=== PATIENT | female | born 2000 | race Caucasian/White ===

== ENCOUNTER 2019-07-15 11:17 | Outpatient (RCR) | payer MEDICAID, SELFPAY ==
[2019-07-15 12:04] LABS: Hematocrit 34.9 % (37.0-47.0); Hemoglobin 11.7 g/dL (12.0-15.0); Mean Corpuscular HGB Conc 33.5 g/dl (32-36); Mean Corpuscular Hemoglobin 30.9 pg (26-34); Mean Corpuscular Volume 92.1 fl (80-100); Mean Platelet Volume 12.1 fl (7.4-10.4); Platelet Count Result 122 k/mm3 (150-375); Red Blood Count 3.79 M/mm3 (4.2-5.4); Red Cell Distribution Width 13.2 % (11.5-14.5); White Blood Count 8.6 K/mm3 (4.5-10.0)
[2019-07-15 12:53] LABS: Hepatitis B Surface Antigen Negative (Negative)
[2019-07-15 12:59] LABS: HIV 1/2 Ab P24 Ag Result Negative (Negative)
[2019-07-15 13:48] LABS: Rubella IgG Antibody > 120.0 IU/ML
[2019-07-16 11:42] LABS: Rapid Plasma Reagin Non-Reactive (NonReactive)
[2019-07-18 01:37] LABS: CMV IgM Antibody <30.00 AU/mL (<30.00)
[2019-07-18 15:23] LABS: Varicella IgM Antibody <=0.90 (<=0.90)
== END 2019-10-13 23:59 | disposition home or self-care (01) ==
LOC: ANHLAB 11:17
PROVIDERS: PCP Nurse Practitioner Adult Health; Visit Provider Obstetrics & Gynecology
DX: N92.5 Other specified irregular menstruation (principal); Z11.4 Encounter for screening for human immunodeficiency virus [HIV]
CPT/HCPCS: 36415; 84702; 85027; 86592; 86644; 86645; 86703; 86747; 86762; 86787; 86900; 86901; 87086; 87088; 87340; G0432

== ENCOUNTER 2019-11-13 16:08 | Outpatient (CLI) | payer OTHER, SELFPAY ==
[2019-11-13 16:36] LABS: Basophils Percent Auto 0.2 % (0.2-1.2); Eosinophils Percent Auto 0.4 % (0-4.4); Hematocrit 36.9 % (37.0-47.0); Hemoglobin 12.6 g/dL (12.0-15.0); Immature Granulocyte Absolute 0.05 K/mm3 (0.00-0.031); Immature Granulocyte Percent A 0.5 % (0-0.5); Lymphocytes Absolute Auto 1.65 K/mm3 (0.9-3.2); Lymphocytes Percent Auto 15.4 % (18.3-44.2); Mean Corpuscular HGB Conc 34.1 g/dl (32-36); Mean Corpuscular Hemoglobin 32.5 pg (26-34); Mean Corpuscular Volume 95.1 fl (80-100); Mean Platelet Volume 12.1 fl (7.4-10.4); Monocytes Absolute Auto 0.6 K/mm3 (0.1-0.6); Monocytes Percent Auto 5.1 % (2.6-8.5); Neutrophils Absolute Auto 8.4 K/mm3 (1.3-6.7); Neutrophils Percent Auto 78.4 % (45.5-73.1); Platelet Count Result 146 k/mm3 (150-375); Red Blood Count 3.88 M/mm3 (4.2-5.4); Red Cell Distribution Width 12.7 % (11.5-14.5); White Blood Count 10.7 K/mm3 (4.5-10.0)
[2019-11-13 16:46] LABS: Creatinine Urine 126.8 mg/dL; Total Protein Urine Random 15 mg/dL
[2019-11-13 16:50] LABS: Alanine Aminotransferase 16 U/L (4-35); Albumin Level 3.9 g/dL (3.7-5.6); Alkaline Phosphatase 61 U/L (45-116); Anion Gap 7 mmol/L (8-16); Aspartate Amino Transferase 23 U/L (14-36); Bilirubin,Total 0.3 mg/dL (0.2-1.3); Blood Urea Nitrogen 7 mg/dL (8-21); Calcium 8.9 mg/dL (8.9-10.7); Carbon Dioxide 24 mmol/L (22-30); Chloride 102 mmol/L (98-107); Estimated Glomerular Filt Rate > 60; Glucose 98 mg/dL (65-105); Lactate Dehydrogenase 332 U/L (313-618); Potassium 3.9 mmol/L (3.4-5.0); Sodium 133 mmol/L (134-143); Uric Acid 2.7 mg/dL (3.0-5.9)
== END 2019-11-13 16:09 | disposition home or self-care (01) ==
LOC: ANHLAB 16:12
PROVIDERS: Visit Provider Obstetrics & Gynecology
DX: D69.6 Thrombocytopenia, unspecified (principal)
CPT/HCPCS: 36415; 80053; 82570; 83615; 84156; 84550; 85025

== ENCOUNTER 2021-06-18 13:55 | Emergency (ER) | payer OTHER, SELFPAY ==
[2021-06-18 14:03] VITALS: BP 93/60; PULSE 103; RESP 18; TEMP 37.1; O2SAT 97
[2021-06-18 14:10] VITALS: BP 93/60; PULSE 103; RESP 18; TEMP 37.1; O2SAT 97
--- NOTE | 2021-06-18 14:17 | ED.EAR ---
HPI - Ear Problem General Chief complaint: Ear Stated complaint: Lt Ear Pain,Rt Ear Irritation Time Seen by Provider: 06/18/21 14:10 Source: patient Mode of arrival: ambulatory Limitations: no limitations History of Present Illness HPI Narrative: Pratibha Coleman is a 20 yo female with no PMH who comes to express care with complaints of bilateral ear pain. Left ear is weeping and canal is swollen difficult to visualize end of canal, started 1 week ago; there is very tender to touch Related Data Allergies Allergy/AdvReac Type Severity Reaction Status Date / Time Penicillins Allergy Mild RASH Verified 06/18/21 14:10 tetracycline Allergy Mild RASH Verified 06/18/21 14:10 Review of Systems Review of Systems: CONSTITUTIONAL: Denies fever, chills, sweats. EYES: Denies visual changes, redness, discharge. ENT: Denies rhinorrhea, congestion, sore throat, otalgia. Bilateral ear pain the right is itching some and the left is swollen and very tender with discharge CARDIOVASCULAR: Denies chest pain, palpitations, edema. RESPIRATORY: Denies dyspnea, wheezing, cough GASTROINTESTINAL: Denies abdominal pain, nausea, vomiting, diarrhea. GENITOURINARY: Denies dysuria, hematuria, abnormal discharge SKIN: Denies rash or itching. NEUROLOGIC: Denies numbness, or focal weakness. PSYCHIATRIC: Denies anxiety or depression. PMFSH Social History Social History (Updated 06/18/21 @ 14:21 by Myrna Johnson CNP) Smoking status: Never smoker Alcohol intake: never Comments At time of signature, I agree with nursing past medical, surgical, social and family history. There is no relevant family history pertinent to the presenting complaint. Exam Narrative: GENERAL: This is a well-nourished, well-developed patient, in mild distress. HEAD: normocephalic, atraumatic. EYES:Sclera clear/white. Vision is grossly intact. EARS: External ears normal, auditory canals erythema and with drainage on left. Canal very tender to touch unable to visualize TM,. Hearing grossly intact. NOSE: External nose normal without nasal discharge, nares without redness, no rhinorrhea. THROAT: Mucous membranes moist, NECK: Neck supple, non-tender CARDIOVASCULAR: Regular rate and rhythm without murmurs, gallops, or rubs. RESPIRATORY: Clear to auscultation. Breath sounds equal bilaterally. No wheezes, rales, or rhonchi. GASTROINTESTINAL: Not done SKIN: warm, intact with no suspicious lesions or rash, good texture and turgor. NEURO: awake, alert, and oriented to person, place and time. There were no obvious focal neurologic abnormalities. Steady gait EXTREMITIES: Normal range of motion. BACK: Nontender without deformity Course Course Emergency Course: Patient here with bilateral ear pain left with drainage x1 week Started on amoxicillin and eardrops; caution to not place anything in the ear see antibiotics corrected the problem on the left Level of Care: Express Care Visit Vital Signs Vital signs: Vital Signs Temperature 98.7 F 06/18/21 14:03 Pulse Rate 103 H 06/18/21 14:03 Respiratory Rate 18 06/18/21 14:03 Blood Pressure 93/60 L 06/18/21 14:03 Pulse Oximetry 97 06/18/21 14:03 Temperature 98.7 F 06/18/21 14:10 Pulse Rate 103 H 06/18/21 14:10 Respiratory Rate 18 06/18/21 14:10 Blood Pressure 93/60 L 06/18/21 14:10 Pulse Oximetry 97 06/18/21 14:10 Medical Decision Making Differential Diagnosis Differential Diagnosis: Otitis media versus otitis externa versus foreign object in place versus eustachian tube dysfunction Vital Signs Vital Signs: Vital Signs Temperature 98.7 F 06/18/21 14:03 Pulse Rate 103 H 06/18/21 14:03 Respiratory Rate 18 06/18/21 14:03 Blood Pressure 93/60 L 06/18/21 14:03 Pulse Oximetry 97 06/18/21 14:03 Temperature 98.7 F 06/18/21 14:10 Pulse Rate 103 H 06/18/21 14:10 Respiratory Rate 18 06/18/21 14:10 Blood Pressure 93/60 L 06/18/21 14:10 Pulse Oximetry 97 06/18/21 14:10 C
== END 2021-06-18 14:26 | disposition home or self-care (01) ==
PROVIDERS: Emergency Provider Nurse Practitioner
DX: H60.313 Diffuse otitis externa, bilateral (principal)
CPT/HCPCS: 99213; G0463

== ENCOUNTER 2021-11-08 15:05 | Outpatient (CLI) | payer OTHER, SELFPAY ==
[2021-11-08 16:06] LABS: Basophils Percent Auto 0.2 % (0.2-1.2); Eosinophils Percent Auto 0.3 % (0-4.4); Hematocrit 36.2 % (37.0-47.0); Hemoglobin 12.2 g/dL (12.0-15.0); Immature Granulocyte Absolute 0.03 K/mm3 (0.00-0.031); Immature Granulocyte Percent A 0.3 % (0-0.5); Lymphocytes Absolute Auto 1.67 K/mm3 (0.9-3.2); Lymphocytes Percent Auto 17.9 % (18.3-44.2); Mean Corpuscular HGB Conc 33.7 g/dl (32-36); Mean Corpuscular Hemoglobin 31.4 pg (26-34); Mean Corpuscular Volume 93.3 fl (80-100); Mean Platelet Volume 12.5 fl (7.4-10.4); Monocytes Absolute Auto 0.4 K/mm3 (0.1-0.6); Monocytes Percent Auto 4.5 % (2.6-8.5); Neutrophils Absolute Auto 7.2 K/mm3 (1.3-6.7); Neutrophils Percent Auto 76.8 % (45.5-73.1); Platelet Count Result 132 k/mm3 (150-375); Red Blood Count 3.88 M/mm3 (4.2-5.4); Red Cell Distribution Width 13.2 % (11.5-14.5); White Blood Count 9.3 K/mm3 (4.5-10.0)
[2021-11-08 16:56] LABS: Hepatitis B Surface Antigen Negative (Negative)
[2021-11-08 17:05] LABS: HIV 1/2 Ab P24 Ag Result Negative (Negative)
[2021-11-08 17:30] LABS: Rubella IgG Antibody > 120.0 IU/ML
[2021-11-09 15:00] LABS: Rapid Plasma Reagin Non-Reactive (NonReactive)
== END 2021-11-08 15:06 | disposition home or self-care (01) ==
LOC: ANHLAB 15:07
PROVIDERS: Visit Provider Obstetrics & Gynecology
DX: N94.89 Other specified conditions associated with female genital organs and menstrual cycle (principal)
CPT/HCPCS: 36415; 84702; 85025; 86592; 86644; 86703; 86747; 86762; 86787; 86850; 86900; 86901; 87086; 87088; 87340; G0432

== ENCOUNTER 2021-12-06 14:45 | Outpatient (CLI) | payer OTHER, SELFPAY ==
[2021-12-06 15:06] LABS: Mean Platelet Volume 12.1 fl (7.4-10.4); Platelet Count Result 131 k/mm3 (150-375)
== END 2021-12-06 14:46 | disposition home or self-care (01) ==
LOC: ANHLAB 14:47
PROVIDERS: Visit Provider Obstetrics & Gynecology
DX: D69.1 Qualitative platelet defects (principal)
CPT/HCPCS: 36415; 85049

== ENCOUNTER 2022-03-01 15:30 | Outpatient (CLI) | payer OTHER, SELFPAY ==
[2022-03-01 16:09] LABS: Basophils Percent Auto 0.2 % (0.2-1.2); Eosinophils Percent Auto 0.3 % (0-4.4); Hematocrit 35.8 % (37.0-47.0); Hemoglobin 12.1 g/dL (12.0-15.0); Immature Granulocyte Absolute 0.07 K/mm3 (0.00-0.031); Immature Granulocyte Percent A 0.6 % (0-0.5); Lymphocytes Absolute Auto 2.08 K/mm3 (0.9-3.2); Lymphocytes Percent Auto 17.5 % (18.3-44.2); Mean Corpuscular HGB Conc 33.8 g/dl (32-36); Mean Corpuscular Hemoglobin 32.2 pg (26-34); Mean Corpuscular Volume 95.2 fl (80-100); Mean Platelet Volume 12.3 fl (7.4-10.4); Monocytes Absolute Auto 0.6 K/mm3 (0.1-0.6); Neutrophils Absolute Auto 9.1 K/mm3 (1.3-6.7); Neutrophils Percent Auto 76.4 % (45.5-73.1); Platelet Count Result 138 k/mm3 (150-375); Red Blood Count 3.76 M/mm3 (4.2-5.4); Red Cell Distribution Width 12.6 % (11.5-14.5); White Blood Count 11.9 K/mm3 (4.5-10.0)
== END 2022-03-01 15:31 | disposition home or self-care (01) ==
LOC: ANHLAB 15:32
PROVIDERS: Visit Provider Student in an Organized Health Care Education/Training Program
DX: D69.1 Qualitative platelet defects (principal)
CPT/HCPCS: 36415; 85025

== ENCOUNTER 2022-04-04 12:23 | Outpatient (CLI) | payer OTHER, SELFPAY ==
[2022-04-04 14:18] LABS: Glucose 1 Hour PP 50gm Dose 87 mg/dL
== END 2022-04-04 12:24 | disposition home or self-care (01) ==
LOC: ANHLAB 12:24
PROVIDERS: Visit Provider Student in an Organized Health Care Education/Training Program
DX: Z34.90 Encounter for supervision of normal pregnancy, unspecified, unspecified trimester (principal); Z3A.00 Weeks of gestation of pregnancy not specified
CPT/HCPCS: 36415; 82947

== ENCOUNTER 2022-05-11 17:17 | Inpatient (IN) | payer OTHER, SELFPAY ==
[2022-05-11 17:37] VITALS: RESP 20; TEMP 36.4; BMI 24.5
--- NOTE | 2022-05-11 17:40 | LDADM ---
This patient, Pratibha Corrigan, was admitted to Labor/Delivery/Recovery 106 on 05/11/22 at 17:17. Plans for labor, pain management and were discussed with patient. Patient/family oriented to hospital policies and general routines including ID bracelet, bed and alarms, visiting hours, pain management, procedures, bathroom and other care routines, personal items, smoking policy, room service/diet and guest tray routines, security routines, and visiting hours. Patient/Family are encouraged to report perceived risks to care and to ask questions if they do not understand what they are told or what they should do. See OBIX for further documentation.
--- NOTE | 2022-05-11 17:42 | WPDANESEPP ---
Anes - Eval Pre Procedure Procedure: labor epidural Date/Time: 05/11/22 17:42 Surgeon: ariadna Preop Diagnosis: pain during labor Pre Op Diagnosis: IOL Patient Data Age: 21 Gender: F Height: Weight: Last Vital Signs O2 Del Method Room Air 05/11/22 17:37 Allergies Allergy/AdvReac Type Severity Reaction Status Date / Time Penicillins Allergy Mild RASH Verified 05/10/22 14:50 tetracycline Allergy Mild RASH Verified 05/10/22 14:50 Home Medications Medication Instructions Recorded Confirmed Type prenat.vits,marty,msc-upqx-dajrw 1 tablet PO DAILY #90 tabs 11/04/21 05/11/22 Rx Patient hx anesthesia problems: none Family hx anesthesia problems: none Results Review: All pre-operative results and documents have been reviewed as part of the pre-operative evaluation. COUNT INCLUDES THE [facility] Past Medical History Medical History Allergies Anxiety disorder Asthma Family history of ambiguous genitalia 1st Family History Family History (Updated 05/11/22 @ 17:42 by Mala Rob RN) Grandparent Breast cancer Other No pertinent family history in first degree relatives Social History Social History Smoking status: Never smoker Alcohol intake: never Substance use: current Substance use type: marijuana Last use: a few days ago Living arrangements: with family Occupation/Education: unemployed Gender identity (if verbalized by the patient): Female Sexual Orientation (if Verbalized by the Patient): Straight or Heterosexual Spiritual care concerns: No Exam Day of Procedure 05/11/22 17:42
[2022-05-11 18:07] LABS: Basophils Percent Auto 0.2 % (0.2-1.2); Eosinophils Percent Auto 0.3 % (0-4.4); Hematocrit 37.9 % (37.0-47.0); Hemoglobin 12.9 g/dL (12.0-15.0); Immature Granulocyte Absolute 0.04 K/mm3 (0.00-0.031); Immature Granulocyte Percent A 0.4 % (0-0.5); Immature Platelet Fraction Pct 18.1 % (0.9-11.2); Lymphocytes Absolute Auto 1.87 K/mm3 (0.9-3.2); Lymphocytes Percent Auto 19.7 % (18.3-44.2); Mean Corpuscular Hemoglobin 32.7 pg (26-34); Mean Corpuscular Volume 95.9 fl (80-100); Mean Platelet Volume 13.5 fl (7.4-10.4); Monocytes Absolute Auto 0.5 K/mm3 (0.1-0.6); Monocytes Percent Auto 4.7 % (2.6-8.5); Neutrophils Absolute Auto 7.1 K/mm3 (1.3-6.7); Neutrophils Percent Auto 74.7 % (45.5-73.1); Platelet Count Result 116 k/mm3 (150-375); Red Blood Count 3.95 M/mm3 (4.2-5.4); Red Cell Distribution Width 12.9 % (11.5-14.5); White Blood Count 9.5 K/mm3 (4.5-10.0)
[2022-05-11 18:09] VITALS: BP 110/60; PULSE 77
[2022-05-11] MEDS: DINOPROSTONE 10 MG VAG INSERT VAGINAL (18:37)
[2022-05-11 18:47] LABS: HIV 1/2 Ab P24 Ag Result Negative (Negative)
[2022-05-11 23:28] VITALS: BP 114/54; PULSE 76
[2022-05-12] VITALS (59 sets, daily range): BP systolic 73–150; BP diastolic 29–82; PULSE 29–148; RESP 16; TEMP 36.2–36.6; O2SAT 99–100
--- NOTE | 2022-05-12 07:53 | WPDHPUPDATE1 ---
History and Physical Update Update Date/Time: 05/12/22 07:53 21-year-old who presents for elective induction of labor at 39 weeks. Patient's has been uncomplicated thus far. History and Physical has been reviewed, including an updated exam of the patient. There are NO changes in the patient's condition. Risks, benefits, and alternatives have been discussed and questions answered. Patient agrees to proceed with procedure. A/P: Admit to L&D Routine admission orders Plan for Cervidil induction of labor Rh positive GBS negative Continuous external monitoring
[2022-05-12] MEDS: OXYTOCIN 30 UNITS/NS 500 ML 30 UNITS/500 ML BAG 999 UNITS IV CONT (09:00)
[2022-05-12] MEDS: LACTATED RINGERS 1,000 ML 125 ML IV CONT (09:45)
--- NOTE | 2022-05-12 09:46 | WPDHPUPDATE1 ---
History and Physical Update Update Date/Time: 05/12/22 09:46 History and Physical has been reviewed, including an updated exam of the patient. There are NO changes in the patient's condition. Risks, benefits, and alternatives have been discussed and questions answered. Patient agrees to proceed with procedure.
--- NOTE | 2022-05-12 09:46 | WPDOBADMIT ---
Obstetrics - Admit Note Admission Note: record reviewed. No pertinent additions to the history and/or any subsequent changes in the physical findings that are not consistent with the expected course of the were found. Additions to the history and/or subsequent changes in the physical findings follow. None.
--- NOTE | 2022-05-12 09:46 | PM.OBPRVD ---
OB - Delivery Note Procedure Induction method: Per Cervidil Protocol Delivery augmentation: Rupture of Membranes Delivery monitor: External FHT and Internal Uterine Route of delivery: Episiotomy description: None Laceration Description: None Specimen: No Quantitative Blood Loss (ml): 300 Anesthesia type: Epidural Disposition: Floor Complications: None Narrative: Patient prepped draped usual manner for this procedure. Maternal expulsive efforts readily delivered vertex over intact perineum. Nuchal cord was noted and readily reduced. Rest of baby was delivered cord clamped cut and placenta delivered spontaneously. Uterus was well contracted. Cervix vagina vulva were inspected with no lacerations or tears. At this point the procedure was considered terminated with immediate postoperative condition of mother and baby both excellent. Baby Weeks of gestation at delivery: 39 gender: Male Weight (pounds): 7 Weight (ounces): 8 presentation: vertex Placenta delivery description: Spontaneous Cord Vessel Description: 3 Vessels, Nuchal Cord and Reduced score one minute: 9 score five minutes: 9 AMG Delivery Billing Delivery Delivery: Delivery Charge
--- NOTE | 2022-05-12 11:50 | OBPPTRN ---
Patient transferred to post room # 291 via wheelchair accompanied by and support person. PT and support person present both recipients of instructions and no barriers to learning identified at this time. PT introductions made and plan of care discussed per post , pain management, breast feeding, daily care activities. PT received such instructions per one to one discussion, mom baby care guide and demonstrations. Pt was oriented to unit, room, information board, rooming in, admission packet and security measures. Patient verbalizes understanding.
--- NOTE | 2022-05-12 14:00 | PC.NURSE ---
[id number] Introductions were made, then consulted with patient to assess needs related to . Mother led the conversation with her?plans to feed?her infant and the?experience so far. Mother was encouraged to place infant skin to skin upright, then infant stooled and voided. Diaper was changed and infant placed back skin to skin with mother. Mother hand expresses colostrum, then independently latched infant to the right breast using cross cradle subsequently switching to cradle. was heard swallowing and mother denies pain. Resources provided for inpatient and outpatient services with the feeding sheet, mom/baby guide, business card and name written on the white board. Mother voiced understanding of information and will call if there is a request for assistance. Reported to the primary RN.
[2022-05-12 15:56] LABS: Rapid Plasma Reagin Non-Reactive (NonReactive)
[2022-05-13 05:02] LABS: Hematocrit 38.1 % (37.0-47.0); Hemoglobin 13.1 g/dL (12.0-15.0)
[2022-05-13 07:35] VITALS: BP 105/50; PULSE 55; RESP 16; TEMP 37.5; O2SAT 99
[2022-05-13 10:45] VITALS: PULSE 55; RESP 16; O2SAT 99
[2022-05-13] MEDS: DOCUSATE SODIUM 100 MG CAPSULE PO (10:45)
[2022-05-13] MEDS: MULTIVIT/MIN/PREN/FOL AC/IRON TABLET 1 TAB PO (10:45)
[2022-05-13] MEDS: IBUPROFEN 600 MG TABLET PO (10:45)
--- NOTE | 2022-05-13 12:25 | P.DS_ITS ---
DS: Admitting Diagnosis Discharge Date 05/13/22 Admitting Diagnosis intrauterine at term DS: Discharge Diagnosis Discharge Diagnosis (1) : Code(s): Z34.90 - Encounter for supervision of normal , unspecified, unspecified trimester Status: Acute OB - DS: Summary OB Procedures : None OB Procedures Intrapartum: Spontaneous Vag Delivery OB Procedures: : None Status at Discharge Functional status at discharge: independent ambulation Overall status at discharge: patient is back to baseline Time Spent with Patient Time attestation: Total time spent providing and/or coordinating discharge services: Time spent: Less than 30 minutes Exam Const: General: comfortable and no acute distress Resp: Effort & Inspection: normal respiratory effort Auscultation: clear to auscultation bilaterally Cardio: Rate: regular rate GI: GI Palp: Yes Soft to palpation Auscultation: normal bowel sounds Other: Fundus firm below umbilicus Psych: Appearance: grossly normal Mental Status: mental status grossly normal Affect: normal affect DS: Data Data Completed and Pending Labs on day of discharge: Labs from last 24 hours 05/13/22 05/11/22 04:52 17:46 Hgb 13.1 Hct 38.1 RPR Non-reactive Discharge Plan Discharge Discharging Clinician: Stanislav Melendez Patient Disposition: Home, Self-Care Activity: as tolerated and pelvic rest Diet: regular Patient Instructions: Antibiotic Form, Vaginal Delivery (DC) Stand Alone Forms: General Discharge Information Follow-up/Referrals: Stanislav Melendez MD [Physician] - Discharge Medications: New acetaminophen [Mapap (acetaminophen)] 325 mg Tablet 650 mg PO Q6H PRN (Reason: Mild Pain (1-3) Or Headache) Qty: 30 0RF ibuprofen 600 mg Tablet 600 mg PO Q6H PRN (Reason: Cramping) Qty: 30 0RF Continued prenat.vits,marty,gqh-pgga-ixcru Tablet 1 tablet PO DAILY Qty: 90 3RF Date of admission: 05/11/22 17:17 Primary Care Provider: PHYSICIAN,LEAD MATERIAL HANDLER Admitting Provider: Stanislav Melendez Attending physician on admission: Stanislav Melendez Condition: Stable
--- NOTE | 2022-05-13 13:35 | PC.NURSE ---
[id number] Mother led the conversation with her experience and plan to feed her infant so far and her ability to independently latch optimally without discomfort. Mother is feeding appropriately for growth of and understands stimulating to eat if needed. Infant has had appropriate feedings in the last 24 hours meets the outcomes for weight, output and jaundice at this time. Mother states she is confident to continue effectively breastfeed her infant at home, when to call for assistance and denies any additional assistance or education at this time. Reinforced understanding of milk production, transition of milk, signs of adequate intake, transition of stool, prevention/relief of engorgement, responsive watching for feeding cues, the different methods of stimulating infant to breastfeed 2-3 hours after the start of the last feeding, community resources, medication information reviewed per [employer] (reviewed marijuana use is not recommended and advised not to use) and when to call a provider using the resource of the mom and baby guide/[facility] website. Mother voiced understanding of the education shared. Reported to the primary RN.
--- NOTE | 2022-05-13 14:02 | WPDANLDPN2 ---
Anes-Prog Note L&D Date/Time: 05/13/22 14:02 Comfortable throughout: labor and delivery Neuraxial method: epidural Epidural/Spinal procedure site: clean & non-tender Neuro status: Neuro function grossly intact. Cardiovascular status: normal Respiratory status: normal Airway patency: baseline Mental status: baseline Post-Op hydration status: normal Vital Signs: Last Vital Signs Temp 99.5 F 05/13/22 07:35 Pulse 55 L 05/13/22 10:45 Resp 16 05/13/22 10:45 BP 105/50 L 05/13/22 07:35 Pulse Ox 99 05/13/22 10:45 O2 Del Method Room Air 05/13/22 10:45 Pain score (VAS): 0/10 I/O: Intake & Output 05/12/22 05/13/22 05/13/22 23:59 07:59 15:59 Intake Total 500 500 Balance 500 500 Post-procedural complaints: none Patient feedback: Patient satisfied with anesthetic care.
[2022-05-14 11:22] VITALS: BP 95/44; PULSE 103; RESP 20; TEMP 37.7; O2SAT 97
== END 2022-05-13 16:45 | disposition home or self-care (01) | DRG 560 ==
LOC: ANHLDR 05-12 10:06 → ANHOB2 05-12 12:07
PROVIDERS: Obstetrics & Gynecology; Admitting Provider Student in an Organized Health Care Education/Training Program; Visit Provider Student in an Organized Health Care Education/Training Program
DX: O62.3 Precipitate labor (principal); O69.81X0 Labor and delivery complicated by cord around neck, without compression, not applicable or unspecified; Z37.0 Single live birth; Z3A.39 39 weeks gestation of pregnancy
CPT/HCPCS: 36415; 85014; 85018; 85025; 85055; 86592; 86703; 86850; 86900; 86901; A9270; G0432; J2590; J2795; J7120

== ENCOUNTER 2023-09-26 17:08 | Outpatient (CLI) | payer OTHER, SELFPAY ==
[2023-09-26 17:28] LABS: Basophils Percent Auto 0.3 % (0.2-1.2); Eosinophils Absolute Auto 0.1 K/mm3 (0-0.3); Eosinophils Percent Auto 0.7 % (0-4.4); Hematocrit 36.4 % (37.0-47.0); Hemoglobin 12.5 g/dL (12.0-15.0); Immature Granulocyte Absolute 0.03 K/mm3 (0.00-0.031); Immature Granulocyte Percent A 0.3 % (0-0.5); Lymphocytes Absolute Auto 2.09 K/mm3 (0.9-3.2); Lymphocytes Percent Auto 21.7 % (18.3-44.2); Mean Corpuscular HGB Conc 34.3 g/dl (32-36); Mean Corpuscular Hemoglobin 31.8 pg (26-34); Mean Corpuscular Volume 92.6 fl (80-100); Mean Platelet Volume 12.3 fl (7.4-10.4); Monocytes Absolute Auto 0.4 K/mm3 (0.1-0.6); Monocytes Percent Auto 4.4 % (2.6-8.5); Neutrophils Percent Auto 72.6 % (45.5-73.1); Platelet Count Result 150 k/mm3 (150-375); Red Blood Count 3.93 M/mm3 (4.2-5.4); Red Cell Distribution Width 12.8 % (11.5-14.5); White Blood Count 9.6 K/mm3 (4.5-10.0)
[2023-09-26 18:18] LABS: HIV 1/2 Ab P24 Ag Result Negative (Negative)
[2023-09-26 18:37] LABS: Hepatitis B Surface Antigen Negative (Negative)
[2023-09-26 18:39] LABS: Rubella IgG Antibody > 110.0 IU/ML
[2023-09-27 06:16] LABS: Rapid Plasma Reagin Non-Reactive (NonReactive)
== END 2023-09-26 17:09 | disposition home or self-care (01) ==
LOC: ANHLAB 17:10
PROVIDERS: Visit Provider Student in an Organized Health Care Education/Training Program
DX: N91.2 Amenorrhea, unspecified (principal)
CPT/HCPCS: 36415; 84702; 85025; 86592; 86644; 86703; 86747; 86762; 86787; 86850; 86900; 86901; 87086; 87340; G0432

== ENCOUNTER 2024-01-12 15:51 | Outpatient (CLI) | payer OTHER, SELFPAY ==
--- NOTE | ~2024-01-12 | US_ITS ---
EXAMINATION: US OB limited DATE: 01/12/2024 16:31 INDICATION: Reevaluate low-lying placenta TECHNIQUE: Real-time ultrasound of the pelvis was performed. The interpreting radiologist was not pre sent for the study. COMPARISON: 11/29/2023 FINDINGS: There is a single living fetus in stable presentation. The placenta is posterior with caudal margin 4.7 cm from the internal cervical os. Cervical length measures 5.2 cm in length which is normal. Feta l heart rate is 161 beats per minute (bpm). The amniotic fluid index is 12.5 cm, which is normal (5th %-95%: 9.5-22.6 cm at 26 weeks estimated gestational age). IMPRESSION: 1. Single living fetus in variable presentation with heart rate of 161 bpm. 2. Normal amniotic fluid index of 12.5 cm. 3. Posterior placenta with caudal margin 4.7 cm from the internal cervical os. Reviewed, dictated and finalized at location B. [employer]ODUCTS ASSEMBLER IMPRESSION: 1. Single living fetus in variable presentation with heart rate of 161 b pm. 2. Normal amniotic fluid index of 12.5 cm. 3. Posterior placenta with caudal margin 4.7 cm from the internal cervical os.
== END 2024-01-12 15:52 | disposition home or self-care (01) ==
PROVIDERS: Visit Provider Student in an Organized Health Care Education/Training Program
DX: O44.40 Low lying placenta NOS or without hemorrhage, unspecified trimester (principal); Z3A.00 Weeks of gestation of pregnancy not specified
CPT/HCPCS: 76815

== ENCOUNTER 2024-02-01 13:53 | Outpatient (CLI) | payer OTHER, SELFPAY ==
[2024-02-01 15:24] LABS: Hematocrit 35.4 % (37.0-47.0); Hemoglobin 11.8 g/dL (12.0-15.0); Mean Corpuscular HGB Conc 33.3 g/dl (32-36); Mean Corpuscular Hemoglobin 32.4 pg (26-34); Mean Corpuscular Volume 97.3 fl (80-100); Platelet Count Result 134 k/mm3 (150-375); Red Blood Count 3.64 M/mm3 (4.2-5.4); Red Cell Distribution Width 12.8 % (11.5-14.5); White Blood Count 8.8 K/mm3 (4.5-10.0)
[2024-02-01 15:31] LABS: Glucose 1 Hour PP 50gm Dose 93 mg/dL
[2024-02-01 19:24] LABS: HIV 1/2 Ab P24 Ag Result Negative (Negative)
[2024-02-02 06:37] LABS: Rapid Plasma Reagin Non-Reactive (NonReactive)
== END 2024-02-01 13:54 | disposition home or self-care (01) ==
LOC: ANHLAB 13:55
PROVIDERS: Visit Provider Student in an Organized Health Care Education/Training Program
DX: Z34.90 Encounter for supervision of normal pregnancy, unspecified, unspecified trimester (principal); Z3A.00 Weeks of gestation of pregnancy not specified
CPT/HCPCS: 36415; 82947; 85027; 86592; 86703; G0432

== ENCOUNTER 2024-04-05 05:41 | Inpatient (IN) | payer OTHER, SELFPAY ==
[2024-04-05] VITALS (18 sets, daily range): BP systolic 96–113; BP diastolic 36–67; PULSE 67–101; RESP 16–18; TEMP 36.6–37.5; O2SAT 96–100; BMI 27.1
--- NOTE | 2024-04-05 05:41 | LDADM ---
This patient, Pratibha Corrigan, was admitted to Labor/Delivery/Recovery 105 on 04/05/24 at 05:41. Plans for labor, pain management and were discussed with patient. Patient/family oriented to hospital policies and general routines including ID bracelet, bed and alarms, visiting hours, pain management, procedures, bathroom and other care routines, personal items, smoking policy, room service/diet and guest tray routines, security routines, and visiting hours. Patient/Family are encouraged to report perceived risks to care and to ask questions if they do not understand what they are told or what they should do. See OBIX for further documentation.
--- OUTSIDE RECORDS SUMMARY | 2024-04-05 06:03 | XMS_ITS | Clinical Summary ---
Author Organization [facility] Address [address] [place] [id number] Care Team Providers Care Electrical Products Sales Engineer Name Role Phone Unavailable Primary Care Provider Unavailabl e Social History Tobacco Use Types Packs/Day Years Used Date Smoking Tobacco: Never Assessed Comments Unknown Sex and Gender Information Value Date Recorded Sex Assigned at Not on file Legal Sex Female 8:07 PM CDT Gender Identity Not on file Sexual Orientation Not on file Plan of Treatment Health Maintenance Due Date Last Done Comments Cervical Cancer Screening Pa p Smear (Age 21 to 29) Every 3 Years 1999 Cervical Cancer Screening 1999 Annual Physical 12/06/2002 HPV Vaccines (1 - 3-dose series) 12/06/2014 Hepatitis C 12/06/2017 DTaP, Tdap and Td Vaccines ( 1 - Tdap) 12/06/2018 Hepatitis B Vaccines (1 of 3 - 19+ 3-dose series) 12/06/2018 COVID-19 Vaccine (2023-2 5 season) 2023 Influenza Adult (#1) 2023 Meningococcal B Vaccine Aged Out No l onger eligible based on patient's age to complete this topic Meningococcal Vaccine Aged Out No vicenta sharon eligible based on patient's age to complete this topic Pneumococcal Vaccine: Pediat rics (0 to 5 Years) and At-Risk Patients (6 to 64 Years) Aged Out No longer eligible b ased on patient's age to complete this topic RSV Immunizations Under 20 Months Aged Out No longer eligible based on patient's age to complete this topic
[2024-04-05] MEDS: OXYTOCIN 30 UNITS/NS 500 ML 30 UNITS/500 ML BAG 999 UNITS IV CONT (06:16)
[2024-04-05 06:21] LABS: Basophils Percent Auto 0.1 % (0.2-1.2); Eosinophils Percent Auto 0.4 % (0-4.4); Immature Granulocyte Absolute 0.04 K/mm3 (0.00-0.031); Immature Granulocyte Percent A 0.5 % (0-0.5); Immature Platelet Fraction Pct 10.2 % (0.9-11.2); Lymphocytes Absolute Auto 1.02 K/mm3 (0.9-3.2); Lymphocytes Percent Auto 13.5 % (18.3-44.2); Mean Corpuscular HGB Conc 33.3 g/dl (32-36); Mean Corpuscular Hemoglobin 31.5 pg (26-34); Mean Corpuscular Volume 94.4 fl (80-100); Monocytes Absolute Auto 0.4 K/mm3 (0.1-0.6); Monocytes Percent Auto 5.5 % (2.6-8.5); Neutrophils Absolute Auto 6.1 K/mm3 (1.3-6.7); Platelet Count Result 110 k/mm3 (150-375); Red Blood Count 4.13 M/mm3 (4.2-5.4); Red Cell Distribution Width 13.5 % (11.5-14.5); White Blood Count 7.6 K/mm3 (4.5-10.0)
--- NOTE | 2024-04-05 06:35 | PM.IMHP ---
H&P: HPI History of Present Illness Date/Time: 04/05/24 06:35 Chief Complaint: Contractions Narrative: She presented to labor and delivery with c/o contractions regular since 5 am. She was complete. PNC significant for mild thrombocytopenia. Review of Systems Review of Systems: All systems reviewed & are unremarkable except as noted in HPI and below Constitutional: Constitutional: Reports no additional constitutional complaints and Denies headache(s) Eyes: Eyes: Denies spots in vision ENT: Reports system reviewed and no additional complaints, except as documented and Denies headache(s) Cardiovascular: Cardiovascular: Denies chest pain and Denies dyspnea Respiratory: Respiratory: Denies dyspnea Gastrointestinal: Gastrointestinal: Reports no additional gastrointestinal complaints Genitourinary: Genitourinary: Reports amenorrhea Musculoskeletal: Musculoskeletal: Reports no additional musculoskeletal complaints Integumentary/Breasts: Skin/Breast: Denies breast mass and Denies rash Neurologic: Denies headache(s) Psychiatric: Psychiatric: Reports no additional psychiatric complaints PMFSH Past Medical History Medical History Asthma Allergies Anxiety disorder Family history of ambiguous genitalia 1st Family History Family History Grandparent Breast cancer Other No pertinent family history in first degree relatives Social History Social History Smoking status: Never smoker Second hand tobacco smoke exposure: No Alcohol intake: never Substance use: current Substance use type: marijuana Last use: a few days ago Lack of Transportation: No Lack of Food: Never True Current Housing: I Have Housing Concerned About Future Housing: No Difficulty Paying Gas/Electric Bills: No Difficulty Paying for Meds: No Currently Unemployed: No Education: High School Diploma/GED Difficulty w/ Childcare or Family Care: No Living arrangements: with family Occupation/Education: unemployed Gender identity (if verbalized by the patient): Female Sexual Orientation (if Verbalized by the Patient): Straight or Heterosexual Spiritual care concerns: No Meds Home Medications and Allergies Home Medications ?Medication ?Instructions ?Recorded ?Confirmed ?Type prenat.vits,marty,stc-aanp-uzpgk 1 tablet PO DAILY #90 tabs 11/04/21 04/03/24 Rx Allergies Allergy/AdvReac Type Severity Reaction Status Date / Time Penicillins Allergy Mild RASH Verified 03/27/24 10:26 tetracycline Allergy Mild RASH Verified 03/27/24 10:26 Vital Signs Vital Signs - 24 hr 04/05/24 06:02 04/05/24 06:07 04/05/24 06:12 Pulse Rate Blood Pressure Pulse Oximetry 96 98 100 04/05/24 06:30 Pulse Rate 73 Blood Pressure 113/65 Pulse Oximetry Exam Const: General: no acute distress Eyes: General: appearance normal, both eyes and all related structures Resp: Effort & Inspection: normal respiratory effort Cardio: Rate: regular rate GI: Other: Gravid no fundal tenderness no right upper quadrant pain Skin: General skin exam: no rashes or lesions noted Neuro: Cognition (Neuro): normal cognition Extrem: General: normal to inspection Psych: Mental Status: mental status grossly normal H&P: Results Labs Labs: Short CBC 04/05/24 Range/Units 06:08 WBC 7.6 (4.5-10.0) K/mm3 Hgb 13.0 (12.0-15.0) g/dL Hct 39.0 (37.0-47.0) % Plt Count 110 L (150-375) k/mm3 Assessment and Plan Assessment and plan (1) Active labor: Status: Acute Assessment and Plan: 1. Admit with eminent delivery.
--- NOTE | 2024-04-05 06:37 | PM.OBPRVD ---
OB - Vaginal Delivery Note Procedure Delivery date: 04/05/24 Events: Other (Precipitous delivery) Induction method: None Delivery monitor: External FHT Route of delivery: Laceration Description: None Specimen: Yes (placenta and cord) Quantitative Blood Loss (ml): 200 Anesthesia type: None Disposition: Floor Complications: No immediate complications Narrative: She presented to L and D completely dilated. IV was started. She had urge to push. AROM thick meconium. She delivered with subsequent push over intact perineum. Nose and mouth suctioned at perineum and infant was vigorously crying and placed on maternal abdomen. Cord doubly clamped and cut after apulsatile. Short cord noted. Venous cord blood gases obtained. Pitocin started. Placenta delivered spontaneously and intact. No lacerations. [place] Baby Date of : 04/05/24 Time of : 06:18 Gestational Age by Date: 38 Infant gender: Female presentation: vertex position: Right Occiput Anterior Placenta delivery description: Spontaneous score one minute: 8 score five minutes: 9
[2024-04-05] MEDS: LACTATED RINGERS 1,000 ML 125 ML IV CONT (06:52)
[2024-04-05] MEDS: OXYTOCIN 30 UNITS/NS 500 ML 30 UNITS/500 ML BAG 125 UNITS IV CONT (06:54)
[2024-04-05 07:11] LABS: HIV 1/2 Ab P24 Ag Result Negative (Negative)
[2024-04-05 07:20] LABS: Rapid Plasma Reagin Non-Reactive (NonReactive)
--- NOTE | 2024-04-05 07:30 | PC.NURSE ---
pt has bruising down both legs. Pt has a hx of thrombocytopenia and low platelet count during this visit of 110. pt reports she has a puppy at home and she got a new toy for the dog and got the dog worked up and they jumped on her legs. Pt denies the bruises for any other reason. pt came on her own to labor and delivery an stated that her fiance was at home with the other children but he does not have a phone.
--- NOTE | 2024-04-05 08:42 | S_PTH ---
PATIENT: Pratibha Corrigan LOC: [facility] U#:[id number] AGE/SX: 23/F ROOM: 285 RE04/05/[address]: Kenneth Dan MD : 2000 BED: 00 DIS: 04/06/2024 SPEC #: [id number] RECD: 04/05/24 10:17 STATUS: PRASHANTH REQ #: [id number] EDDIE: 04/05/24 08:[address]: Celestino Patel DEPT: [facility] Surgical RECD BY: Ana Lilia King ENTERED: 04/05/24 10:17 SP TYPE: Surgical OTHR DR: UNKNOWN,DOCTOR Stanislav Melendez MD Tissues: A - Placenta Procedures: Hematoxylin and Eosin Stain Gross and Microscopic Level 5
--- NOTE | 2024-04-05 08:50 | OBPPTRN ---
Patient transferred to post room #285 via wheelchair. Oriented to unit, room, information board, rooming in, admission packet and security measures. Patient verbalizes understanding.
--- NOTE | 2024-04-05 09:45 | PC.NURSE ---
Introductions were made, then consulted with patient to assess needs related to . Discussed with mother her?plans to feed?her and the?experience so far. Baby latched well after delivery. Mom attempted again when she was transferred to but baby was sleepy. Discussed sleepy newborns and that she should call for assistance with waking every three hours if needed. Mom breastfed her other children. Resources provided for inpatient and outpatient services with the feeding sheet, mom/baby guide and name/number written on the communication board. Mother voiced understanding of information and will call if there is a request for assistance. Reported to the Primary RN.
--- NOTE | 2024-04-05 12:22 | PCCCNOTE ---
Care Coordination. Patient referred to CC for financial needs. Met with pt. at bedside. She reports only have one phone and she has it. She was able to communicate through neighbor to let spouse know. He will be up with their other children later. Pt. reports support also from he mother in the area. She is setup with WIC and link. She reports having all necessary baby supplies. Provided her with a basket of baby care items and pt. is grateful. She denies any further resources.
--- NOTE | 2024-04-05 13:22 | P.DS_ITS ---
DS: Admitting Diagnosis Discharge Date 04/06/2024 Admitting Diagnosis pregnanacy DS: Discharge Diagnosis Discharge Diagnosis (1) , delivered: Code(s): O80 - Encounter for full-term uncomplicated delivery Status: Acute OB - DS: Summary OB Procedures : None OB Procedures Intrapartum: Spontaneous Vag Delivery OB Procedures: : None Peripartum Data Laceration Description: None Time Spent with Patient Time attestation: Total time spent providing and/or coordinating discharge services: DS: Data Data Completed and Pending Pending studies at discharge: Pending at discharge 04/05/24 08:42 Surgical [PTH] Routine Labs on day of discharge: Labs from last 24 hours 04/05/24 06:08 WBC 7.6 RBC 4.13 L Hgb 13.0 Hct 39.0 MCV 94.4 MCH 31.5 MCHC 33.3 RDW 13.5 Plt Count 110 L MPV 13.0 H Immature Gran % (Auto) 0.5 Neut % (Auto) 80.0 H Lymph % (Auto) 13.5 L Carter % (Auto) 5.5 Eos % (Auto) 0.4 Baso % (Auto) 0.1 L Lymph # (Auto) 1.02 Carter # (Auto) 0.4 Eos # (Auto) 0.0 Baso # (Auto) 0.0 Abs Immat Gran (auto) 0.04 H Absolute Neuts (auto) 6.1 Absolute Nucleated RBC 0.000 Nucleated RBC % 0.0 % Immature Plt Fraction 10.2 RPR Non-reactive HIV 1&2 Ab/P24 Ag 4thGn Negative Blood Type B Positive Antibody Screen Negative Discharge Plan Discharge Discharging Clinician: Kenneth Dan Activity: as tolerated Diet: as tolerated Patient Language: Kyrgyz Discharge Medications: New ibuprofen 600 mg Tablet 600 mg PO Q6H PRN (Reason: Cramping) Qty: 30 0RF Continued prenat.vits,marty,ver-qnjd-[id number] Tablet 1 tablet PO DAILY Qty: 90 3RF Date of admission: 04/05/24 05:41 Primary Care Provider: UNKNOWN,DOCTOR Admitting Provider: Stanislav Melendez Attending physician on admission: Stanislav Melendez Condition: Stable
[2024-04-05] MEDS: POLYSACCHARIDE IRON COMPLEX 150 MG CAPSULE PO (17:03)
[2024-04-05] MEDS: DOCUSATE SODIUM 100 MG CAPSULE PO (17:03)
[2024-04-06 05:20] LABS: Hematocrit 33.5 % (37.0-47.0); Hemoglobin 11.3 g/dL (12.0-15.0)
[2024-04-06 08:15] VITALS: BP 104/57; PULSE 77; RESP 20; TEMP 36.5; O2SAT 97
[2024-04-06] MEDS: MULTIVIT/MIN/PREN/FOL AC/IRON TABLET 1 TAB PO (08:27)
[2024-04-06] MEDS: IBUPROFEN 600 MG TABLET PO (08:28)
--- NOTE | 2024-04-06 14:45 | PC.NURSE ---
Consulted with mother concerning needs and she shared her ability to independently latch infant optimally without pain. Mother is feeding appropriately for growth of infant and understands stimulating to eat if needed. Infant has had appropriate feedings in the last 24 hours meets the outcomes for weight, output, blood sugar and jaundice at this time. Reinforced understanding of milk production, transition of milk, signs of adequate intake, transition of stool, prevention/relief of engorgement, plugged ducts, mastitis, responsive watching for feeding cues, community resources ([facility] referral faxed to [place] office, she already has a peer counselor), and when to call a provider using the resource of the feeding sheet along with the mom and baby guide. Mom has a breast pump for home use. Mother voiced understanding of the information shared, is confident to continue effectively her at home, when to call for assistance, denies any additional assistance or education at this time. Reported to the Primary RN.
[2024-04-08 09:19] VITALS: BP 108/56; PULSE 86; RESP 16; TEMP 36.4; O2SAT 100
== END 2024-04-06 18:20 | disposition home or self-care (01) | DRG 560 ==
LOC: ANHLDR 06:06 → ANHOB2 13:25 → ANHLDR 04-09 10:55 → ANHOB2 04-09 10:55
PROVIDERS: Admitting Provider Obstetrics & Gynecology; Visit Provider Obstetrics & Gynecology
DX: O62.3 Precipitate labor (principal); Z37.0 Single live birth; Z3A.38 38 weeks gestation of pregnancy; O69.3XX0 Labor and delivery complicated by short cord, not applicable or unspecified
CPT/HCPCS: 36415; 85014; 85018; 85025; 85055; 86592; 86703; 86850; 86900; 86901; 88307; A9270; G0432; J2590; J7120

== ENCOUNTER 2024-11-20 11:47 | Emergency (ER) | payer OTHER, SELFPAY ==
--- NOTE | 2024-11-20 11:53 | ED.URI ---
HPI - URI/Sore Throat General Chief Complaint: Upper Respiratory Infection Stated Complaint: Sinus infection/hard to breathe Time Seen by Provider: 11/20/24 11:57 Source: patient and RN notes reviewed Mode of arrival: ambulatory Limitations: no limitations History of Present Illness HPI Narrative: 23-year-old female presents concern for 2 day history of nasal congestion, sinus pressure, cough, drainage. She reports body aches. Denies fever, chills, sweats. She has been taking Mucinex. She is a 7-month-old infant MD elicited complaint: rhinorrhea and nasal congestion Related Data Allergies Allergy/AdvReac Type Severity Reaction Status Date / Time Penicillins Allergy Mild RASH Verified 11/20/24 11:52 tetracycline Allergy Mild RASH Verified 11/20/24 11:52 Review of Systems Review of Systems: CONSTITUTIONAL: Denies malaise, chills, sweats, or fever. EYES: Denies visual changes, redness, or discharge. ENT: Reports rhinorrhea, congestion. Denies sinus pain, otalgia and sore throat. CARDIOVASCULAR: Denies chest pain, palpitations, or edema. RESPIRATORY: Reports cough. Denies dyspnea. GASTROINTESTINAL: Denies abdominal pain, nausea, vomiting, diarrhea SKIN: Denies rash or itching. MUSCULOSKELETAL: Reports myalgia. NEUROLOGIC: Denies headache. All systems reviewed & are unremarkable except as noted in HPI and below PMFSH Past Medical History Medical History Asthma Allergies Anxiety disorder Family history of ambiguous genitalia 1st Family History Family History Grandparent Breast cancer Other No pertinent family history in first degree relatives Social History Social History Smoking status: Never smoker Second hand tobacco smoke exposure: No Alcohol intake: never Substance use: current Substance use type: marijuana Last use: a few days ago Do You Feel Safe in your Home?: Yes Lack of Transportation: No Lack of Food: Never True Current Housing: I Have Housing Concerned About Future Housing: No Difficulty Paying Gas/Electric Bills: No Difficulty Paying for Meds: No Currently Unemployed: No Education: High School Diploma/GED Difficulty w/ Childcare or Family Care: No Living arrangements: with family Occupation/Education: unemployed Gender identity (if verbalized by the patient): Female Sexual Orientation (if Verbalized by the Patient): Straight or Heterosexual Spiritual care concerns: No Comments At time of signature, agree with nursing past medical, surgical, social and family history. There is no relevant family history pertinent to the presenting complaint Exam Narrative: GENERAL: Well-appearing, well-nourished, and in no acute distress. HEAD: Normocephalic EYES: PERRLA, conjunctivae clear ENT: Nares clear, turbinates edematous and erythematous, clear discharge. Mucous membranes moist. TM pearly muñoz with sharp light reflex bilaterally; no tragal tenderness. Oropharynx not erythematous without lesions. Tonsils not enlarged and without exudate, no drooling, no hoarseness, no trismus, uvula midline. NECK: Supple. No lymphadenopathy CHEST: Clear to auscultation, breath sounds equal. No wheezing, rhonchi, rales, or stridor. No respiratory distress, speaks in full sentences. HEART: Regular rate and rhythm. No murmur heard. SKIN: Warm, dry, no rash. NEURO: Alert and oriented x3. PSYCH: Normal mood and affect Course Course Emergency Course: Patient is aware of diagnosis, understands and agrees to treatment plan. Anticipatory guidance given. Patient agrees to follow-up as directed and is aware of reasons to seek care at the emergency department. Portions of this record may have been created with voice recognition software Level of Care: Express Care Visit Vital Signs Vital signs: Reviewed. MDM - URI/Sore Throat MDM Narrative Medical decision making narrative: Differential diagnosis considered: Lee virus, strep pharyngitis, allergic rhinitis, upper respiratory tract infection, sinusitis, rhinosinusitis, nasopharyngitis. viral pharyngitis, otitis media, otitis externa, pneumonia, bronchitis, viral cough syndrome, viral syndrome, and influenza. Exam findings show no acute concerns or changes; patient is non-toxic appearing and is in no distress. Patient is appropriate for outpatient treatment and follow-up. Lab Data Attestation: I reviewed the patient's lab results. Critical Care Time Critical Care Time Critical Care Time: No Discharge Plan Discharge Clinical Impression: Upper respiratory infection Patient Disposition: Home Condition: Stable Instructions: Upper Respiratory Infection (ED) Additional Instructions: Viral illness may last between 7-21 days; antibiotics do not cure viral illness and are NOT recommended at this time. Also, recommend symptomatic treatment includes: rest, fluids, and increase humidity of the air at home. Recommend Acetaminophen as directed on the bottle to reduce fever, pain, headache. Avoid smoking/second-hand smoke. Please schedule a follow-up visit with your personal physician for further evaluation and treatment within 3-5days. f your symptoms persist, change or worsen significantly before you can contact your personal physician then please, without delay, go to the emergency department for further evaluation. Patient Language: Sierra Leonean Prescriptions: New pseudoephedrine HCl [12 Hour Decongestant] 120 mg tablet extended release 120 mg PO Q12H PRN (Reason: nasal congestion) Qty: 20 0RF ipratropium bromide 21 mcg (0.03 %) spray,non-aerosol 2 spray NASAL TID PRN (Reason: nasal drainage) Qty: 30 0RF Rx Instructions: administer into each nostril Follow-up/Referrals: PHYSICIAN,NAIL POLISH BRUSH MACHINE FEEDER [Primary Care Provider, Internal Medicine] Time of Disposition: 12:07
[2024-11-20 11:54] VITALS: BP 101/63; PULSE 93; RESP 18; TEMP 36.8; O2SAT 99
--- OUTSIDE RECORDS SUMMARY | 2024-11-20 12:26 | XMS_ITS | Clinical Summary ---
Author Organization [facility] Address [address] [place] [address] Care Team Providers Care Printing Worker Supervisor Name Role Phone Linda Cain TIMOTHY-REPORTING LEAD Primary Care Provider + Source Comments [facility],non-owned Affiliates and Associated Physician Practices is amultiple site organization consisting of ambulatory clinics and hospital sitesin [place], [place], [place] and [place]. This disclosure is being madepursuant to the Care Everywhere program and may not contain all information available regarding this patient. Last updated 17.[facility] Allergies Active Allergy Reactions Criticality Noted Date Comments Amoxicillin Rash Medium 03/18/2017 Penicillins Unknown 07/13/2017 Tetracyclines GI Discomfort,Vomiting Medium 03/18/2017 Medications * Be aware that medications may not be up to date on this document. Alwaysverify current medications with the patient. Vit-Fe Fumarate-FA ( VITAMIN) 28-0.8 MG tablet Take 1 tablet by mouth once daily Active ibuprofen (MOTRIN) 600 MG tabletIndicatio ns: state (HCC) Take 1 tablet by mouth every 6 hours as needed for Pain 50 tablet 0 Active docusate sodium (COLACE) 100 MG capsuleIndicati ons: state (HCC) Take 1 capsule by mouth 2 times daily as needed for Constipation 60 capsule 1 0 Active Active Problems Problem Noted Date Diagnosed Date Vaginal delivery 01/31/2020 Encounter for induction of labor 01/29/2020 Encounter for anatomic survey 10/14/2019 Overview (10/14/2019): B+ Neg, Imm, Rpr-?, Hbsag-NR, HIV-NR H/H/P 11.7/34.9/122 Resolved Problems Problem Noted Date Diagnosed Date Resolved Date Depression screen - initial on 12/05/19 12/05/2019 01/31/2020 Overview (01/02/2020): 12/05/2019 Pratibha Kaye was screened for depression using the [place] Depression Scale (EPDS) at her [facility] initial evaluation on 12/05/2019. Her initial score at baseline was 3. Based off of her score of 3, Pratibha does not warrant follow up. Patient will continue to be screened throughout , at intervals no closer than two weeks, for continued surveillance and early identification of depression until delivery. Patient denies mental health history. 01/02/2020: Follow-up EPDS score=1 abnormality in pregnan cy - ambiguous genitalia 11/01/2019 01/31/2020 Overview (01/09/2020): Images from the original note were not included. [facility] PATIENT--PLEASE CALL [phone] (ex 2) IF TRIAGED OR ADMITTED Care Provider: Dr. Antonieta Watts [facility] consultants involved: RN- Anastasiia; MFM- Dr. 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 12.05.2019. Return to [facility] 01.02.2020 for delivery planning. Routine OB care with primary OB Delivery location: [facility] Delivery mode: per usual OB indications Desired Delivery GA: at 39 weeks - IOL 01/29/2020 follow up: need to evaluate the fetus postdelivery with physical exam and blood tests, in addition to an ultrasound to evaluate the internal genitalia and other abdominal organs. See Genetics note below re: recommended blood tests. Kiln Furniture Saw Tender: Genetics note (with recommendations from Endocrinology included): Pt had non- invasive testing (NIPT) which was low risk for trisomies 13/18/21 and sex chromosome aneuploidy. sex chromosomes are predicted to be XX; however, fetus has ambiguous genitalia. CAH is most likely diagnosis if genitalia truly appear ambiguous postnatally. genetic studies on cord blood are indicated If the genitalia are truly ambiguous (as opposed to ending up being only mild clitoromegaly). Specifically, chromosomal microarray (minimum 2 mL in green top sodium heparin tube) and 17-OH progesterone (ordered in [facility] as 17 hydroxyprogesterone quant; can be drawn in a red-top tube, gel-barrier tube, or lavender-top (EDTA) tube). Please request Genetics consult by calling the Genetics office at [phone]. Endocrine (preferably Dr. Garcia) should also be notified of the patient's delivery, so Nursery can be communicated with about the work-up Repairer Helper Concerns: 12/05/2019- Patient does admit to smoking MJ; recommends UDS, meconium and umbilical cord blood be sent at delivery. Care plan based on evaluation and is subject to change based on assessment. See Images or Cardiac under Chart Review for US/ ECHO/ MRI reports. Cellulitis of left lower extremity 07/13/2017 10/14/2019 Assessment & Plan (07/14/2017 3:25 PM CDT): Assessment: 16 yo female previously healthy admitted after dog bite with surrounding cellulitis admitted to the surgical team for further management. ID consulted for antibiotic management and consideration of rabies prophylaxis. Plan: - Recommend having the dog observed for 10 days for signs of symptoms. If symptoms do not develop then Pratibha will not require rabies postexposure prophylaxis. If symptoms develop in the dog, which seem to be of low likelihood then recommend she receive post-exposure prophylaxis. - Recommend for antibiotic coverage to further delineate severity of penicillin allergy. If mild could consider switching to rocephin for intravenous treatment. When patient able can then switch to Keflex PO prior to discharge for total treatment of 10-14 days. If patient has severe reaction to penicillin such as anaphylaxis then would continue with ciprofloxacin. Recommend discontinue clindamycin, either of the above antibiotics will cover for pasturella which is the most common pathogen in dog bites. Cellulitis and abscess of oral soft tissues 03/18/2017 10/14/2019 Assessment & Plan (03/20/2017 10:21 PM CHILD NURSE): Assessment: Pratibha Kaye is a 16 yo female with right sided dental infection and subsequent facial cellulitis. No evidence of abscess formation or osseous abnormalities on CT. Due to neck complaints of mild right sided neck pain, concerns for possible Lemierre's syndrome (infectious thrombophlebitis of the internal jugular vein) so reviewed neck CT with [facility] radiology, no signs of inflammation of IJ on neck CT on 03/18. Continue to monitor closely for progression of neck pain. Will trial PO clindamycin this afternoon and monitor for intolerance. Patient requires continued admission at this time for IVF due to poor PO intake, pain control and close monitoring for clinical improvement. Plan: - Monitor clinical exam closely, including progression of neck pain - MIVF at 100 ml/hr - Regular diet, Encourage PO intake - Transition from IV clindamycin to PO clindamycin- 450 mg TID, complete 10 day course - Start Culturelle TID w/ abx - Tylenol prn, oxycodone prn for pain control - Discontinue Toradol, restart ibuprofen - vitals q8hr, I/O TID Assessment & Plan (03/20/2017 12:13 PM CHILD NURSE): Assessment: Pratibha Kaye is a 16 yo female with right sided dental infection and subsequent facial cellulitis. No evidence of abscess formation or osseous abnormalities on CT. Due to neck complaints of mild right sided neck pain, concerns for possible lemierre's syndrome (infectious thrombophlebitis of the internal jugular vein) so reviewed neck CT with [facility] radiology, no signs of inflammation of IJ on neck CT on 03/18. Continue to monitor closely for progression of neck pain. Will trial PO clindamycin this afternoon and monitor for intolerance. Patient requires continued admission at this time for IVF due to poor PO intake, pain control and close monitoring for clinical improvement. Plan: - Monitor clinical exam closely, including progression of neck pain - MIVF at 100 ml/hr - Regular diet, Encourage PO intake - Transition from IV clindamycin to PO clindamycin- 450 mg TID, complete 10 day course - Start Culturelle TID w/ abx - Tylenol prn, oxycodone prn for pain control - Discontinue Toradol, restart ibuprofen - vitals q8hr, I/O TID Assessment & Plan (03/19/2017 8:59 AM CHILD NURSE): Assessment: Pt Pratibha Kaye is a 16 y.o., who presented w/ 1 week hx of right lower jaw swelling DDX:oral cellulitis 2/2 dental cavity w/ subsequent skin and soft tissue inflammation vs simple facial cellulitis Working DX:oral cellulitis 2/2 dental cavity w/ subsequent skin and soft tissue inflammation Comments:w/ pts hx of 1 mo of cavity w/ subsequent gum and jaw swelling, I believe cellulitis originated in oral cavity and had produced swelling in surrounding soft tissue, CT stated there was no obvious abscess to drain. Pt is stable at the time w/ no fevers or unstable VS, recommended treatment is clindamycin. Plan: Evaluations: VS Q [address] head done Management: Admit MIVF D5 1/2 ns w/ 2 meq k at 100 ml / hr Clindamycin 50 mg/kg/day Ceftriaxone 1 gm /day - dosing recommended is 50 mg /kg/day -Ceftriaxone was originally planned, but clindamycin alone should cover organisms -ceftiaxone stopped am 03/19 Tylenol pain control Start ketorlac pain control 03/19 am roxicodone D/c motrin Assessment & Plan (03/19/2017 2:50 AM CHILD NURSE): Assessment: Pt Pratibha Kaye is a 16 y.o., who presented w/ 1 week hx of right lower jaw swelling DDX:oral cellulitis 2/2 dental cavity w/ subsequent skin and soft tissue inflammation vs simple facial cellulitis Working DX:oral cellulitis 2/2 dental cavity w/ subsequent skin and soft tissue inflammation Comments:w/ pts hx of 1 mo of cavity w/ subsequent gum and jaw swelling, I believe cellulitis originated in oral cavity and had produced swelling in surrounding soft tissue, CT stated there was no obvious abscess to drain. Pt is stable at the time w/ no fevers or unstable VS, recommended treatment is clindamycin w/ ceftriaxone and monitor for improvement. Plan: Evaluations: VS Q [address] head done Management: Admit MIVF D5 1/2 ns w/ 2 meq k at 100 ml / hr Clindamycin 50 mg/kg/day Ceftriaxone 1 gm /day - dosing recommended is 50 mg /kg/day Tylenol Motrin roxicodone Immunizations Immunization Administration Dates Next Due MMR 01/31/2020(Deferred: See Comment s - pt is rubella immune) TDAP (7yrs+) 01/31/2020,07/13/2017 Social History Tobacco Use Types Packs/Day Years Used Date Smoking Tobacco: Every Day Cigarettes 0.3 2 Smokeless Tobacco: Never Tobacco Cessation:Ready to Q uit: No; Counseling Given: Yes Alcohol Use Standard Drinks/Week Comments No 0 (1 standard drink = 0.6 oz pur e alcohol) Comments No Sex and Gender Information Value Date Recorded Sex Assigned at Not on file Legal Sex Female 6:55 AM CHILD NURSE Gender Identity Not on file Sexual Orientation Not on file Last Filed Vital Signs Vital Sign Reading Time Taken Comments Blood Pressure 128/64 01/31/2020 8:05 AM CHILD NURSE Pulse 73 01/31/2020 8:05 AM CHILD NURSE Temperature 36.7 C (98 F) 01/31/2020 8:05 AM CHILD NURSE Respiratory Rate 16 01/31/2020 8:05 AM CHILD NURSE Oxygen Saturation 97% 01/31/2020 8:05 AM CHILD NURSE Inhaled Oxygen Concentration - - Weight 68 kg (150 lb) 01/29/2020 9:25 AM CHILD NURSE Height 167.6 cm (5' 6) 01/29/2020 9:25 AM CHILD NURSE Body Mass Index 24.21 01/29/2020 9:25 AM CHILD NURSE Plan of Treatment Health Maintenance Due Date Last Done Comments HIV SCREENING 12/06/2014 HPV VACCINE (1 - 3-dose series) 12/06/2014 CHLAMYDIA/GONORRHEA SCREENING 2015 HEPATITIS C SCREENING 12/02/2017 HEPATITIS B VACCINE (1 of 3 - 19+ 3-dose series) 12/06/2018 PNEUMOCOCCAL VACCINE (1 of 2 - PCV) 12/06/2018 PAP SMEAR 12/06/2020 DEPRESSION SCREENING 02/28/2024 COVID-19 VACCINE (1 - 2023-2 5 season) 2024 INFLUENZA VACCINE (#1) 2024 DTAP/TDAP/TD VACCINES (3 - T d or Tdap) 01/30/2030 01/31/2020, 07/13/2017 ZOSTER VACCINE (1 of 2) 12/06/2049 HIB VACCINE Aged Out No longer eligi ble based on patient's age to complete this topic MENINGOCOCCAL (Group B) VACCINE SHARED DECISION-MAKING Aged Out No longer eligible based on patient's age to complete this topic MENINGOCOCCAL GROUPS A/C/Y/W VACCINE Aged Out No longer eligible b ased on patient's age to complete this topic Insurance [facility] SELF PAY NO INSURANCE Member Subscriber Plan / Payer (Ef fective for All Dates) Name:Pratibha Kaye Member ID:Not on file Relation to Subscriber:Not on file Name:PRATIBHA KAYE Subscriber ID:Not on file (Home) Address: [address] [place] [address] Payer ID:Not on file Group ID:Not on file Type:Self Pay Address: [place], [place] [facility] Advance Directives * Full Code (Latest Code Status on File) Date Activated Date Inactivated Comments 01/29/2020 9:35 AM 01/31/2020 2:48 PM * Full Code Date Activated Date Inactivated Comments 07/13/2017 11:59 PM 07/16/2017 7:04 PM * Full Code Date Activated Date Inactivated Comments 03/19/2017 2:10 AM 03/20/2017 4:36 PM Care Teams Printing Worker Supervisor Relationship Specialty Start Date End Date Linda Cain APRN-YONY [address] [id number] PCP - General Nurse Practitioner 03/18/17
--- OUTSIDE RECORDS SUMMARY | 2024-11-20 12:26 | XMS_ITS | Clinical Summary ---
Author Organization [facility] Address [address] [place] [id number] Care Team Providers Care Test Man Name Role Phone Unavailable Primary Care Provider [...] series) 12/06/2018 COVID-19 Vaccine (2023-2 5 season) 2024 Meningococcal B Vaccine Aged Out No l onger eligible based on patient's age to complete this topic Meningococcal Vaccine Aged Out No vicenta sharon eligible based on patient's age to complete this topic Pneumococcal Vaccine: Pediat rics (0 to 5 Years) and At-Risk Patients (6 to 49 Years) Aged Out No longer eligible b ased on patient's age to complete this topic RSV Immunizations Under 20 Months Aged Out No longer eligible based on patient's age to complete this topic
== END 2024-11-20 12:10 | disposition home or self-care (01) ==
PROVIDERS: Emergency Provider Nurse Practitioner
DX: J06.9 Acute upper respiratory infection, unspecified (principal); F12.90 Cannabis use, unspecified, uncomplicated; J45.909 Unspecified asthma, uncomplicated
CPT/HCPCS: 99213; G0463

== ENCOUNTER 2025-02-10 11:33 | Emergency (ER) | payer OTHER, SELFPAY ==
--- NOTE | 2025-02-10 11:39 | ED_ITS ---
HPI - URI/Sore Throat General Chief Complaint: Upper Respiratory Infection Stated Complaint: sinus Time Seen by Provider: 02/10/25 12:19 Source: patient and RN notes reviewed Mode of arrival: ambulatory Limitations: no limitations History of Present Illness HPI Narrative: 24-year-old female presents with concern for 4 day history of tactile fever, runny nose, stuffy nose, sinus pain and pressure. Reports occasional cough. She reports her children have been sick for 2 weeks him a recently diagnosed with sinusitis. She is breast-feeding a [id number] baby MD elicited complaint: rhinorrhea and nasal congestion Related Data Allergies Allergy/AdvReac Type Severity Reaction Status Date / Time Penicillins Allergy Mild RASH Verified 02/10/25 11:50 tetracycline Allergy Mild RASH Verified 02/10/25 11:50 Review of Systems Review of Systems: CONSTITUTIONAL: Reports malaise, chills, sweats, or fever. EYES: Denies visual changes, redness, or discharge. ENT: Reports rhinorrhea, congestion, sinus pain, and sore throat. CARDIOVASCULAR: Denies chest pain, palpitations, or edema. RESPIRATORY: Reports occasional cough. Denies dyspnea. GASTROINTESTINAL: Denies abdominal pain, nausea, vomiting, diarrhea SKIN: Denies rash or itching. MUSCULOSKELETAL: Denies myalgia. NEUROLOGIC: Denies headache. All systems reviewed & are unremarkable except as noted in HPI and below PMFSH Past Medical History Medical History Asthma Allergies Anxiety disorder Family history of ambiguous genitalia 1st Family History Family History Grandparent Breast cancer Other No pertinent family history in first degree relatives Social History Social History Smoking status: Never smoker Second hand tobacco smoke exposure: No Alcohol intake: never Substance use: current Substance use type: marijuana Last use: a few days ago Lack of Transportation: No Lack of Food: Never True Current Housing: I Have Housing Concerned About Future Housing: No Difficulty Paying Gas/Electric Bills: No Difficulty Paying for Meds: No Currently Unemployed: No Education: High School Diploma/GED Difficulty w/ Childcare or Family Care: No Living arrangements: with family Occupation/Education: unemployed Gender identity (if verbalized by the patient): Female Sexual Orientation (if Verbalized by the Patient): Straight or Heterosexual Spiritual care concerns: No Comments At time of signature, agree with nursing past medical, surgical, social and family history. There is no relevant family history pertinent to the presenting complaint Exam Narrative: GENERAL: Nontoxic-appearing, well-nourished, and in no acute distress. HEAD: Normocephalic EYES: PERRLA, conjunctivae clear ENT: Nares clear, turbinates edematous and erythematous, clear discharge. Mucous membranes moist. TM pearly muñoz with dull light reflex bilaterally; no tragal tenderness. Oropharynx not erythematous without lesions. Tonsils not enlarged and without exudate, no drooling, no hoarseness, no trismus, uvula midline. NECK: Supple. No lymphadenopathy CHEST: Clear to auscultation, breath sounds equal. No wheezing, rhonchi, rales, or stridor. No respiratory distress, speaks in full sentences. HEART: Regular rate and rhythm. No murmur heard. SKIN: Warm, dry, no rash. NEURO: Alert and oriented x3. PSYCH: Normal mood and affect Course Course Emergency Course: Patient is aware of diagnosis, understands and agrees to treatment plan. Anticipatory guidance given. Patient agrees to follow-up as directed and is aware of reasons to seek care at the emergency department. Portions of this record may have been created with voice recognition software Level of Care: [facility] Visit MDM Differential Diagnosis Differential Diagnosis: I evaluated this patient in the [facility]. History is obtained from patient who is an independent historian and physical exam was performed.? Available medical records were reviewed. ? Exam findings and relevant testing show no acute concerns or changes; patient is non-toxic appearing and is in no distress. ? Differential diagnosis considered: Lee virus, strep pharyngitis, allergic rhinitis, upper respiratory tract infection, sinusitis, rhinosinusitis, nasopharyngitis. viral pharyngitis, otitis media, otitis externa, pneumonia, bronchitis, viral cough syndrome, viral syndrome, and influenza. Differential diagnosis and treatment plan were discussed with the patient. Patient agrees with discussion and after shared medical decision making agrees with plan of care. All questions were answered to the patient's satisfaction. Patient is appropriate for outpatient treatment and follow-up. Discharge Plan Discharge Clinical Impression: Viral infection Patient Disposition: Home Condition: Stable Instructions: Viral Syndrome (ED) Additional Instructions: -your rapid COVID and flu tests are negative -Take strict precautions to prevent the spread of your virus. Be diligent about covering your cough (even when you are alone) and washing your hands frequently. -You may contagious until you have been symptom and/or fever free for 24 hours without fever reducing medicine -Alternate Ibuprofen and Tylenol for pain and fever relief (per package directions) -Drink plenty of fluid - drink fluid with electrolytes such as Gatorade or other oral re-hydration solution. Avoid caffeine, which can make dehydration worse. -Get plenty of rest to help your body heal. -Use a cool mist humidifier for chest and nasal congestion. -Eat RAW honey or use cough drops to ease throat discomfort -Do not smoke or expose children to secondhand smoke -Wash your hands frequently. -Please follow-up with your primary care doctor in the next 1-2 days if your symptoms do not improve. -If you have any worsening of symptoms or any other concerns please go to the ED immediately. -Please take medications as prescribed and continue taking your home medications as usual. Patient Language: Albanian Prescriptions: New methylprednisolone [Medrol (Francis)] 4 mg tablets,dose pack See Rx Instructions .ROUTE .COMPLEX Qty: 21 0RF Rx Instructions: orally per package directions Follow-up/Referrals: Bishop Castro MD [Primary Care Provider, Family Practice] Stand Alone Forms: Work/School Release IP Time of Disposition: 12:45
[2025-02-10 11:50] VITALS: BP 91/54; PULSE 105; RESP 16; TEMP 37.1; O2SAT 99
[2025-02-10 13:01] LABS: EDCOVIDSCREEN Negative (Negative); EDINFLUASCREEN Negative (Negative); EDINFLUBSCREEN Negative (Negative)
== END 2025-02-10 12:49 | disposition home or self-care (01) ==
PROVIDERS: Emergency Provider Nurse Practitioner; PCP Emergency Medicine
DX: B34.9 Viral infection, unspecified (principal); Z20.822 Contact with and (suspected) exposure to COVID-19; F12.90 Cannabis use, unspecified, uncomplicated; J45.909 Unspecified asthma, uncomplicated
CPT/HCPCS: 87426; 87804; 99213; G0463